=== PATIENT | female | born 1975 | race Caucasian/White ===

== ENCOUNTER 2017-09-15 08:20 | Emergency (ER) | payer SELFPAY ==
[~2017-09-15] VITALS: Ht 172.7 cm; Wt 141.1 kg
[~2017-09-15 08:20] MED LIST: KEF500 PO; SULF-58 PO
[2017-09-15 08:59] VITALS: BP 135/103
--- NOTE | 2017-09-15 10:38 | NUR ---
PT TAKEN TO BED 1.
[2017-09-15] MEDS ORDERED: IBUPROFEN 800 MG TAB PO ONE (10:50)
[2017-09-15] MEDS ORDERED: SUMAtriptan 25 MG TAB PO ONE (10:50)
[2017-09-15 11:18] VITALS: BP 135/103
--- NOTE | 2017-09-15 11:19 | NUR ---
Patient discharged with v/s stable. Written and verbal after care instructions given and explained. Patient alert, oriented and verbalized understanding of instructions. Ambulatory with steady gait. All questions addressed prior to discharge. ID band removed. Patient advised to follow up with PMD. Rx of FLONASE, AND MOTRIN given. Patient educated on indication of medication including possible reaction and side effects. Opportunity to ask questions provided and answered.
--- NOTE | 2017-09-15 11:19 | NUR ---
PATIENT IS A 42 YO FEMALE BIB SELF FOR HEADACHE AND SINUS PRESSURE AWAKE AND ALERT NO N,V,D. TO BED 1 FOR [facility].
== END 2017-09-15 10:38 | disposition home or self-care (01) ==
LOC: MED 08:20
DX: G44.009 Cluster headache syndrome, unspecified, not intractable (principal); J06.9 Acute upper respiratory infection, unspecified; R03.0 Elevated blood-pressure reading, without diagnosis of hypertension; Z79.899 Other long term (current) drug therapy
CPT/HCPCS: 93005; 99283

== ENCOUNTER 2024-03-25 15:04 | Emergency (ER) | payer MEDICAID ==
[~2024-03-25] VITALS: Ht 172.7 cm; Wt 160.6 kg
[2024-03-25 15:07] VITALS: BP 166/87; PULSE 92; RESP 18; TEMP 98.2; O2SAT 96
[2024-03-25] MEDS: HYDROcodone/APAP 5/325 MG 1 TAB TAB PO ONE (16:01)
[2024-03-25] MEDS ORDERED: IBUP-2218 PO (16:48)
[2024-03-25] MEDS ORDERED: CYCL-711 PO (16:48)
[2024-03-25] MEDS ORDERED: ATA25 PO (16:48)
[2024-03-25 17:24] VITALS: BP 166/87; PULSE 92; RESP 18; TEMP 98.2; O2SAT 96
[2024-03-25] MEDS: HYDROXYZINE HYDROCHLORIDE 25 MG TAB PO ONE (17:24)
== END 2024-03-25 17:24 | disposition home or self-care (01) ==
LOC: MED 15:04
DX: M75.31 Calcific tendinitis of right shoulder (principal); F41.9 Anxiety disorder, unspecified; Z79.899 Other long term (current) drug therapy
CPT/HCPCS: 73030; 81025; 99283